=== PATIENT | female | born 1980 | race Caucasian/White ===

== ENCOUNTER 2017-10-30 11:23 | Emergency (ER) | payer MEDICAID ==
--- NOTE | 2017-10-30 12:16 | Emergency Department Record ---
History of Present Illness - General Chief complaint: Eye Problem Stated complaint: EYE IS RED Time Seen by Provider: 10/30/17 11:47 Source: Patient Mode of Arrival: Ambulatory Limitations: No limitations - History of Present Illness Initial comments: pt has a red eye that is getting worse. it was stuck together this morning chief complaint: Eye pain, Eye redness Onset/Timin -: Days(s) Onset Description: Gradual Location: Left eye If Injury: None Eye Symptoms: Blurry vision, Discharge, Itching, Redness Severity: Mild Consistency: Getting worse Associated Symptoms: None Treatments Prior to Arrival: None - Related Data Visual acuity (L) = 20/: 20 Visual acuity (R) = 20/: 20 With correction: No Previous Rx's Medication Instructions Recorded Gentamicin Sulfate 1 drop AFFEYE QID #30 ml 10/30/17 Allergies Allergy/AdvReac Type Severity Reaction Status Date / Time codeine Allergy HIVES Verified 10/30/17 11:44 prochlorperazine Allergy DIFFICULTY Verified 10/30/17 11:44 [From Compazine] BREATHING Travel Screening - Travel/Exposure Within Last 30 Days Have you traveled within the last 30 days?: No - Travel/Exposure Within Last Year Have you traveled outside the [place] in the last year?: No - Additonal Travel Details Have you been exposed to anyone with a communicable illness?: No - Travel Symptoms Symptom Screening: None Review of Systems Reviewed: No additional complaints except as noted below Constitutional: Reports: As per HPI. Denies: Chills, Fever, Malaise, Night sweats, Weakness, Weight change Eyes: Reports: As per HPI, Eye discharge, Eye pain, Photophobia. Denies: Vision change ENT: Reports: As per HPI. Denies: Congestion, Dental pain, Ear pain, Epistaxis , Hearing loss, Throat pain Respiratory: Reports: As per HPI. Denies: Cough, Dyspnea, Hemoptysis, Stridor, Wheezes Cardiovascular: Reports: As per HPI. Denies: Arrhythmia, Chest pain, Dyspnea on exertion, Edema, Murmurs, Orthopnea, Palpitations, Paroxysmal nocturnal dyspnea, Rheumatic Fever, Syncope Endocrine: Reports: As per HPI. Denies: Fatigue, Heat or cold intolerance, Polydipsia, Polyuria Gastrointestinal: Reports: As per HPI. Denies: Abdominal pain, Constipation, Diarrhea, Hematemesis, Hematochezia, Melena, Nausea, Vomiting Genitourinary: Reports: As per HPI. Denies: Abnormal menses, Discharge, Dyspareunia, Dysuria, Frequency, Hematuria, Incontinence, Retention, Urgency Musculoskeletal: Reports: As per HPI. Denies: Arthralgia, Back pain, Gout, Joint swelling, Myalgia, Neck pain Skin: Reports: As per HPI. Denies: Bruising, Change in color, Change in hair/ nails, Lesions, Pruritus, Rash Neurological: Reports: As per HPI. Denies: Abnormal gait, Confusion, Headache, Numbness, Paresthesias, Seizure, Tingling, Tremors, Vertigo, Weakness Psychiatric: Reports: As per HPI. Denies: Anxiety, Auditory hallucinations, Depression, Homicidal thoughts, Suicidal thoughts, Visual hallucinations Hematological/Lymphatic: Reports: As per HPI. Denies: Anemia, Blood Clots, Easy bleeding, Easy bruising, Swollen glands Past Medical History - SOCIAL HISTORY Smoking Status: Current every day smoker Alcohol Use: Occasional Drug Use: Occasional Drug Use Detail:: Marijuana - RESPIRATORY Hx Respiratory Disorders: No - CARDIOVASCULAR Hx Cardio Disorders: No - NEURO Hx Neuro Disorders: No - GI Hx GI Disorders: No - Hx Genitourinary Disorders: No - ENDOCRINE Hx Endocrine Disorders: No - MUSCULOSKELETAL Hx Musculoskeletal Disorders: No - PSYCH Hx Psych Problems: No - HEMATOLOGY/ONCOLOGY Hx Hematology/Oncology Disorders: No Family Medical History Any Significant Family History?: Yes Hx Cancer: Father, Grandparents Hx Depression: Grandparents Hx Resp Disorders: Mother, Grandparents Physical Exam - General General Appearance: Alert, Oriented x3, Cooperative, Mild distress - Head Head exam: Normal inspection - Eye Eye exam: Normal appearance, PERRL, Conjunctival injection, EOMI Pupils: Normal accommodation With correction: No - ENT ENT exam: Normal exam, Mucous membranes moist, Normal external ear exam, Normal orophraynx Ear exam: Normal external inspection. negative: External canal tenderness Nasal Exam: Normal inspection. negative: Discharge, Sinus tenderness Mouth exam: Normal external inspection, Tongue normal Teeth exam: Normal inspection. negative: Dental caries Throat exam: Normal inspection. negative: Tonsillar erythema, Tonsillar exudate - Neck Neck exam: Normal inspection, Full ROM. negative: Tenderness - Respiratory Respiratory exam: Normal lung sounds bilaterally. negative: Respiratory distress - Cardiovascular Cardiovascular Exam: Regular rate, Normal rhythm, Normal heart sounds - GI/Abdominal GI/Abdominal exam: Soft, Normal bowel sounds. negative: Tenderness - Rectal Rectal exam: Deferred - exam: Deferred - Extremities Extremities exam: Normal inspection, Full ROM, Normal capillary refill. negative: Tenderness - Back Back exam: Reports: Normal inspection, Full ROM. Denies: Muscle spasm, Rash noted, Tenderness - Neurological Neurological exam: Alert, CN II-XII intact, Normal gait, Oriented X3 - Psychiatric Psychiatric exam: Normal affect, Normal mood - Skin Skin exam: Dry, Intact, Normal color, Warm Course Vital Signs 10/30/17 11:45 Temperature 98.1 F Pulse Rate 79 Respiratory 18 Rate Blood Pressure 112/61 Pulse Ox 98 Disposition Disposition: Discharge Clinical Impression: Conjunctivitis Qualifiers: Conjunctivitis type: acute Acute conjunctivitis type: unspecified Laterality: left Qualified Code(s): H10.32 - Unspecified acute conjunctivitis, left eye Disposition: Home, Self-Care Condition: (1) Good Instructions: Conjunctivitis (ED) Additional Instructions: follow up with family doctor or opthamologist . return sooner if worse. dont touch eye. Prescriptions: Gentamicin Sulfate 1 drop AFFEYE QID #30 ml Quality - Quality Measures Quality Measures: N/A - Blood Pressure Screening Does Patient Have Any of the Following: No Blood Pressure Classification: Normal BP Reading Systolic Measurement: 112 Diastolic Measurement: 61 Screening for High Blood Pressure: < Normal BP, F/U Not Required > [G8783]
== END 2017-10-30 12:24 | disposition home or self-care (01) ==
LOC: ER 11:23
DX: H10.32 Unspecified acute conjunctivitis, left eye (principal)
CPT/HCPCS: 99282

== ENCOUNTER 2017-11-16 10:16 | Emergency (ER) | payer MEDICAID ==
[2017-11-16] MEDS ORDERED: PROPARACAINE HCL OPTH 15ML BTL OPTH ONE (11:15)
[2017-11-16] MEDS ORDERED: ERYTHROMYCIN OPTH OINT 3.5GM OPTH ONE (11:37)
--- NOTE | 2017-11-16 11:37 | Emergency Department Record ---
History of Present Illness - General Chief complaint: Eye Problem Stated complaint: L EYE RED /PAINFUL Time Seen by Provider: 11/16/17 11:11 Source: Patient Mode of Arrival: Ambulatory Limitations: No limitations - History of Present Illness Initial comments: The patient is here due to her L eye being red for about 2 weeks. She was here 2 weeks ago for it and did receive Gent drops and the eye did get better minimally but now has been bad for a few days. She does have a sandpaper feeling to the L eye but no blurred vision, ST, or contact lens use. The eye is draining minimally. chief complaint: Eye redness Onset/Timin -: Week(s) Onset Description: Sudden Location: Left eye Place: Home If Injury: None Eye Symptoms: Blurry vision, Decreased vision, Foreign body sensation, Pain, Redness Severity: Moderate Severity scale (1-10): 7 If Pain, Quality: Aching Consistency: Constant Associated Symptoms: None, Headache Treatments Prior to Arrival: None, Other - Related Data Visual acuity (L) = 20/: 30 Visual acuity (R) = 20/: 30 With correction: No Previous Rx's Medication Instructions Recorded Gentamicin Sulfate 1 drop AFFEYE QID #30 ml 10/30/17 Allergies Allergy/AdvReac Type Severity Reaction Status Date / Time codeine Allergy HIVES Verified 11/16/17 11:08 prochlorperazine Allergy DIFFICULTY Verified 11/16/17 11:08 [From Compazine] BREATHING Travel Screening - Travel/Exposure Within Last 30 Days Have you traveled within the last 30 days?: No Review of Systems Constitutional: Denies: Chills, Fever Eyes: Reports: Eye discharge, Eye pain. Denies: Vision change Past Medical History - SOCIAL HISTORY Smoking Status: Current every day smoker Alcohol Use: None Drug Use: None - RESPIRATORY Hx Respiratory Disorders: No - CARDIOVASCULAR Hx Cardio Disorders: No - NEURO Hx Neuro Disorders: No - GI Hx GI Disorders: No - Hx Genitourinary Disorders: No - ENDOCRINE Hx Endocrine Disorders: No - MUSCULOSKELETAL Hx Musculoskeletal Disorders: No - PSYCH Hx Psych Problems: No - HEMATOLOGY/ONCOLOGY Hx Hematology/Oncology Disorders: No Family Medical History Any Significant Family History?: Yes Hx Cancer: Father, Grandparents Hx Depression: Grandparents Hx Resp Disorders: Mother, Grandparents Physical Exam - General General Appearance: Alert, Oriented x3, Cooperative, No acute distress - Head Head exam: Atraumatic, Normocephalic, Normal inspection - Eye Eye exam: PERRL, Conjunctival injection (3+ L eye. Neg for PA node.), EOMI, Other (The L cornea is clear with no flourescein uptake. The anterior chamber is clear on slit lamp exam.). negative: Normal appearance, Periorbital swelling , Periorbital tenderness With correction: No IOP (L) in mmH IOP measured with: Tonopen - ENT ENT exam: Normal exam, Mucous membranes moist, Normal external ear exam, Normal orophraynx, TM's normal bilaterally Course Vital Signs 11/16/17 11:04 Temperature 98.5 F Pulse Rate 80 Respiratory 18 Rate Blood Pressure 127/78 Pulse Ox 96 - Reevaluation(s) Reevaluation #1: I did explain to the patient that I believe she has Epidemic Keratoconjunctivitis to the L eye. She is to use the Emycin ointment and to see an eye doctor in 2-3 days for recheck. 11/16/17 13:04 Disposition Disposition: Discharge Clinical Impression: Conjunctivitis Qualifiers: Conjunctivitis type: unspecified Laterality: left Qualified Code(s): H10.9 - Unspecified conjunctivitis Disposition: Home, Self-Care Condition: (2) Stable Instructions: Conjunctivitis (ED) Additional Instructions: Please use the Emycin ointment in the L eye 4 times a day for 5 days. Please see an eye doctor in 2-3 days and if possible also Dr. Hubbard on . Return to the ER for any worsening symptoms. Referrals: [facility] [Provider Group] BOYD HUBBARD [MEDICAL DOCTOR] - Forms: Patient Portal Access Time of Disposition: 11:40 Quality - Quality Measures Quality Measures: N/A - Blood Pressure Screening View Details: Yes Does Patient Have Any of the Following: No Blood Pressure Classification: Pre-Hypertensive BP Reading Systolic Measurement: 127 Diastolic Measurement: 78 Screening for High Blood Pressure: < Pre-Hypertensive BP, F/U Documented > [ [id number]] Pre-Hypertensive Follow-up Interventions: Referral to alternative/primary care provider.
== END 2017-11-16 11:50 | disposition home or self-care (01) ==
LOC: ER 10:16
DX: B30.0 Keratoconjunctivitis due to adenovirus (principal); F17.210 Nicotine dependence, cigarettes, uncomplicated
CPT/HCPCS: 99283